=== PATIENT | male | born 1940 | race Two or more races ===

== ENCOUNTER 2024-04-25 09:16 | Outpatient (AMB) | payer MEDICARE, SELFPAY ==
--- NOTE | 2024-04-25 09:21 | AM.OFFWIN_ITS ---
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 Intake Note: Pt is here today for stitch removal on chin Patient Tobacco Use Status: Never used Tobacco Allergies Penicillins Allergy (Unknown, Verified 04/25/24 09:28) Unknown Do you need a note to return to daycare/school/sports/work: No HPI HPI Comments History of Present Illness Details Patient presents for suture removal Here [facility] healthcare proxy/friend He fell on the due to dehydration No fractures States cut chin and had 7 sutures placed at [facility] Minimal pain to area No drainage fever or chills [facility] Social History Patient Tobacco Use Status: Never used Tobacco Review of Systems Const Denies chills and Denies fever(s) ENT Denies nasal discharge, Denies sore throat and Reports other (chin tenderness over sutures) Skin/Breast Reports wounds (healing wound chin with sutures in place) Physical Exam Vital Signs: Last Vital Signs Temp 98.3 F 04/25/24 09:24 Pulse 69 04/25/24 09:24 BP 112/62 04/25/24 09:24 Pulse Ox 98 04/25/24 09:24 Oxygen Delivery Method Room Air 04/25/24 09:24 BMI result Body Mass Index 24.5 General: Non-toxic, NAD. Speaking full sentences. Skin: Warm dry throughout. Sutures in place (6) along chin. No surrounding erythema, edema or drainage. No dehiscence. + small area of scabbing Eye: EOMI Respiratory: No respiratory distress MSK: Full ROM extremities. Neurology: A/O. No aphasia or facial droop. Psych: Good mood and affect Assessment & Plan Assessment & Plan (1) Visit for suture removal: Code(s): Z48.02 - Encounter for removal of sutures Plan: Pt presents with healthcare proxy/friend Verbal consent obtained and 6 sutures removed from chin using scissors and tweezers. No remaining sutures Told him to gentle clean with soap and water He can shave on Wednesday Call with concerns Coding Level of Care Code New Pt Level 2 ([id number]) Diagnoses Visit for suture removal Z48.02
[2024-04-25 09:24] VITALS: BP 112/62; PULSE 69; TEMP 36.8; O2SAT 98; BMI 24.5
== END 2024-04-25 09:55 | disposition home or self-care (01) ==
PROVIDERS: PCP Internal Medicine; Visit Provider Physician Assistant
DX: S01.81XD Laceration without foreign body of other part of head, subsequent encounter (principal); Z48.02 Encounter for removal of sutures
CPT/HCPCS: 15853; 99202